=== PATIENT | male | born 1965 | race Caucasian/White ===

== ENCOUNTER → 2017-06-09 | Outpatient (CLI) | payer BC ==
--- NOTE | 2017-06-09 16:45 | RADIOLOGY REPORT (SQ) ---
EXAM DESCRIPTION: CHEST PA/LATERAL COMPLETED DATE/TIME: 06/09/2017 4:19 pm REASON FOR STUDY: ESSENTIAL (PRIMARY) HYPERTENSION COMPARISON: 01/03/2014 TECHNIQUE: Frontal and lateral radiographic views of the chest acquired. NUMBER OF VIEWS: Two view. LIMITATIONS: None. FINDINGS: LUNGS AND PLEURA: No opacities, masses or pneumothorax. No pleural effusion. Mild overexp ansion of the lung edmonds. MEDIASTINUM AND HILAR STRUCTURES: No masses or contour abnormalities. HEART AND VASCULAR STRUCTURES: Heart normal size. No evidence for failure. BONES: No acute findings. HARDWARE: None in the chest. OTHER: No other significant finding. IMPRESSION: Nothing acute. TECHNICAL DOCUMENTATION: JOB ID: [id number] All Rights Reserved
--- NOTE | 2017-06-10 10:50 | EKG REPORT ---
SEVERITY:- NORMAL ECG - SINUS RHYTHM : Confirmed by: Jase Parikh 10-Jun-2017 10:50:23
== END ==
LOC: OD 15:25
PROVIDERS: ATTEND Nurse Practitioner
DX: I10 Essential (primary) hypertension (principal)
CPT/HCPCS: 71020; 93005; 93010

== ENCOUNTER 2018-12-13 08:12 | Day surgery (SDC) | payer BC ==
[~2018-12-13 08:12] MED LIST: PROPOFOL INJ 200 MG/20 ML VIAL IV ONE
[2018-12-13 09:54] VITALS: BP 119/77
--- NOTE | 2018-12-13 14:10 | Operative Report ---
Operative Report DATE OF SURGERY: 12/13/18 Operative Report: The risks, benefits and alternatives of the procedure including the risk of bleeding, perforation requiring surgery have been explained to the patient in detail and informed consent has been obtained. Patient is brought back to the endoscopy suite and placed in the left, lateral decubital position. Timeout was called. Propofol medication is administered. A rectal examination is done which did not reveal any masses, tears or fissures. An Olympus videoscope was introduced into the patient's rectum. The scope was then carefully advanced all the way to the cecum. The cecum was identified by the usual anatomical landmarks including the ileocecal valve as well as the appendiceal office. Photodocumentation is obtained. The scope was then sequentially pulled back via the various segments of the colon including the ascending colon, hepatic flexure ,, transverse colon, splenic flexure, descending colon and finally into the rectosigmoid portions of the colon. Retroflexion maneuver is performed. PREOPERATIVE DIAGNOSIS: Colorectal cancer screening POSTOPERATIVE DIAGNOSIS: Colon polyp that was removed via snare polypectomy. Diverticulosis without any evidence of diverticulitis. Internal hemorrhoids OPERATION: Colonoscopy with snare polypectomy SURGEON: MARK SANTIAGO ANESTHESIA: LMAC TISSUE REMOVED OR ALTERED: As noted above. COMPLICATIONS: None. ESTIMATED BLOOD LOSS: None. INTRAOPERATIVE FINDINGS: As noted above. PROCEDURE: Patient tolerated the procedure well. No immediate postprocedure complications are noted. Patient discharged in good condition. Discharge date 12/13/2018. Discharge diet: Regular. Discharge activity: Regular. 2-3-week follow-up to discuss findings. Patient is instructed to call the office or proceed to the emergency room should there be any further problems or questions. 2-3-year surveillance colonoscopy. Wait on the pathology of the polyp.
== END 2018-12-13 09:55 | disposition home or self-care (01) ==
LOC: END 08:12
PROVIDERS: ATTEND Internal Medicine Gastroenterology
DX: Z12.11 Encounter for screening for malignant neoplasm of colon (principal); K57.30 Diverticulosis of large intestine without perforation or abscess without bleeding; K64.8 Other hemorrhoids; D12.4 Benign neoplasm of descending colon; Z80.0 Family history of malignant neoplasm of digestive organs; K21.9 Gastro-esophageal reflux disease without esophagitis; E78.2 Mixed hyperlipidemia; I10 Essential (primary) hypertension; Z79.82 Long term (current) use of aspirin; F17.210 Nicotine dependence, cigarettes, uncomplicated; Z79.899 Other long term (current) drug therapy
CPT/HCPCS: 45385; 88305 ×2; J2704; 811